=== PATIENT | male | born 1970 | race Hispanic/Latino ===

== ENCOUNTER 2024-11-24 18:10 | Emergency (ER) | payer SELFPAY ==
--- OUTSIDE RECORDS SUMMARY | 2024-11-24 18:13 | XMS REPORT | Continuity of Care Document ---
Author Name Unknown Address [address] [facility] [address] [place] [address] Organization [facility] [place] Address [address] [facility] [address] [place] [address] Care Team Providers Care Central Lab Technician Name Role Phone Pcp, Pcp Primary Care Physician BETTY Cheng Attending Clinician Unavailab Bruce WONG, Aureliano Casillas Attending Clinician [phone] Betty Hall MD Attending Clinician [phone] Social History Social Habit Start Date Stop Date Quantity Comments Source Gender identity Reginald Garnett Sexual orientation M [facility] Sex 2024-11-13 10:53:56 2024-11-13 10:53:56 Male (finding) [facility] Smoking Status Start Date Stop Date Source Tobacco smoking consumption unknown [facility] Medications Ordered Medication Name Filled Medication Name Start Date Stop Date Current Medication? Ordering Clinician Indication Dosage Frequency Signature (SIG) Comments Components Source oxyCODONE (Roxicodone ) immediate release tablet 10 mg oxyCODONE (Roxicodone ) immediate release tablet 10 mg 11-13 19:35: 00 11-13 19:45 :00 No 10mg 10 mg, Oral, Once, On Sun11/13/24 at 1935, For 1 dose Rebekah Garnett ondansetron (Zofran) injection 4 mg ondansetron (Zofran) injection 4 mg 11-13 14:20: 00 11-13 14:32 :00 No 4mg 4 mg, Intravenou s, Once, On Sun11/13/24 at 1420, For 1 dose Rebekah Barkerann Tamir morphine PF injection 4 mg morphine PF injection 4 mg 11-13 14:20: 00 11-13 14:32 :00 No 4mg 4 mg, Intravenou s, Once, On Sun11/13/24 at 1420, For 1 dose Dennisjeremías Barkerann Tamir sodium chloride (NS) 0.9 % flush 10 mL sodium chloride (NS) 0.9 % flush 10 mL 11-13 14:15: 11 Yes 10mL [Order 1 Start] Name: Insert peripheral IV Signed Summary: Once, On Sun11/13/24 at 1416, For 1 occurrence [Order 1 End] [Order 2 Start] Name: Saline lock IV Signed Summary: Once, On Sun11/13/24 at 1416, For 1 occurrence [Order 2 End] [Order 3 Start] Name: sodium chloride (NS) 0.9 % flush 10 mL Signed Summary: 10 mL, Intravenou s, As needed, line care, Starting on Sun11/13/24 at 1415 [Order 3 End] Rebekah Noe [facility] Vital Signs Vital Name Observation Time Observation Value Comments S ource Systolic blood pressure 2024-11-14 05:08:00 160 mm[Hg] [facility] Diastolic blood pressure 2024-11-14 05:08:00 89 mm[Hg] [facility] Heart rate 2024-11-14 05:08:00 64 /min [facility] Respiratory rate 2024-11-14 05:08:00 21 /min [facility] Oxygen saturation in Arterial blood by Pulse oximetry 2024-11-14 05:08:00 94 /min [facility] Body temperature 2024-11-13 20:00:00 37 Lianne [facility] Body height 2024-11-13 13:44:00 170.2 cm Reginald kylah [facility] Body weight 2024-11-13 13:44:00 72 kg [facility] BMI 2024-11-13 13:44:00 24.86 kg/m2 [facility] Systolic blood pressure 2024-11-14 05:08:00 160 mm[Hg] [facility] Diastolic blood pressure 2024-11-14 05:08:00 89 mm[Hg] [facility] Heart rate 2024-11-14 05:08:00 64 /min [facility] Respiratory rate 2024-11-14 05:08:00 21 /min [facility] Oxygen saturation in Arterial blood by Pulse oximetry 2024-11-14 05:08:00 94 /min [facility] Body temperature 2024-11-13 20:00:00 37 Lianne [facility] Body height 2024-11-13 13:44:00 170.2 cm [facility] Body weight 2024-11-13 13:44:00 72 kg [facility] BMI 2024-11-13 13:44:00 24.86 kg/m2 [facility] Procedures Procedure Date / Time Performed Performing Clinician Source XR LUMBAR SPINE 2-3 VIEWS 2024-11-14 02:13:00 Akin Zamarripa [facility] XR THORACOLUMBAR JUNCTION 2 VIEWS 2024-11-14 02:11:00 Akin Mullins [facility] DRUG SCREEN URINE (8 DRUGS) 2024-11-13 20:20:00 [facility] 2024-11-13 15:29:29 [facility] HEAD 2024-11-13 15:29:29 Bethanie [facility] SPINE 2024-11-13 15:29:29 Surnathaly, [facility] vette [facility] BASIC METABOLIC PANEL 2024-11-13 14:32:00 [facility]rel l[facility] HE[facility]EL 2024-11-13 14:32:00 Surre [facility]AnibalBecky [facility] ETHANOL LEVEL 2024-11-13 14:32:00 Anibal Kovacsve tte [facility] TYPE AND SCREEN 2024-11-13 14:32:00 SurAnibal andersenve tte [facility] COMPLETE BLOOD COUNT W/DIFF AND PLATELET 2024-11-13 14:32:00 Anibal Kovacsvette [facility] PROTIME-INR 2024-11-13 14:32:00 SurAnibal andersenve tte Inez [facility] PTT 2024-11-13 14:32:00 Surnathaly, Era tte Inez [facility] CDC HIV 4TH GEN 2024-11-13 14:32:00 Sharmin Aurelianochilo nevarez [facility] COMPLETE BLOOD COUNT 2024-11-13 14:32:00 Surrell Becky Inez [facility] AUTOMATED DIFFERENTIAL 2024-11-13 14:32:00 Surre helga, Becky Inez [facility] ECG 12 lead [facility] Plan of Care Planned Activity Planned Date Details Comments Source Encounters Start Date/Time End Date/Time Encounter Type Admission Type Attending Clinicians Care Facility Care Department Encounter ID Source 2024-11-13 13:49:00 2024-11-14 06:10:00 Emergency Emergency BETTY HALL [facility] General Medicine [id number] [facility] 2024-11-13 13:49:00 2024-11-14 06:10:00 Emergency Aureliano Finney Katrin Y [facility] [id number] Rebekah felix [facility] 2024-11-13 15:59:39 2024-11-13 23:59:[address] [facility] [id number] [facility] 2024-11-13 15:59:39 2024-11-13 23:59:[address] [facility] [id number] [facility] 2024-11-13 15:59:38 2024-11-13 23:59:[address] [facility] [id number] [facility] 2024-11-13 15:29:29 2024-11-13 23:59:[address] [facility] [id number] [facility] 2024-11-13 15:29:29 2024-11-13 23:59:[address] [facility] [id number] [facility] 2024-11-13 15:29:29 2024-11-13 23:59:[address] [facility] [id number] [facility] Results Test Description Test Time Test Comments Results Result Comments Source XR thoracolumbar junction 2 views 2024-11-03 2 03:03:16 EXAM: XR LUMBAR SPINE 2-3 VIEWSEXAM: XR THORACOLUMBAR SPINE 2 VIEWS DATE: 11/14/2024 2:04 INDICATION: standing uprights with brace to evalauate fracture ? COMPARISON: CT chest, abdomen and pelvis with contrast performed on 11/13/2024TECHNIQUE: AP and lateral radiographs of the lumbar spine. AP and lateralradiographs of the thoracolumbar junction. FINDINGS:In an upright position with a brace applied: 5 lumbar type, non-rib bearing vertebral bodies are present. Alignment of the thoracolumbar spine and lumbar elements is maintained. Vertebral body heights are preserved. An acute wedge compression fracture at the anterior superior corner of I2awhsacvup body is unchanged.An acute Chance fracture is present at T12. A minimally displaced transversefracture line is seen through the posterior third of the T12 vertebral bodyextending through the posterior elements of T12, unchanged.Degenerative disc space narrowing is present at L5-S1. Facet arthropathy ispresent at L4-S1. The remaining disc heights are preserved. ?No soft tissue abnormality is identified. IMPRESSION: ? 1. Alignment of thoracolumbar spine and lumbar elements is maintained in theupright position with a brace applied. 2. Acute wedge compression fracture at the anterior inferior corner of L2 isunchanged. 3. Acute Chance fracture is present at T12 with minimally displaced acutetransverse fracture extending from the posterior third of the vertebral bodythrough the posterior elements of T12. 4. Degenerative disc disease is present at L5-S1 with anterior marginalosteophyte formation at L3-S1 accompanied by facet arthropathy greatest atL4-S1. This report was dictated by a Chronometer Adjuster/Fellow/JACINTA: RESDr. Calvin MD 11/14/2024 2:27 This report was dictated by a Chronometer Adjuster/Fellow/Physic parker Dietary Director. Ihave personally reviewed the images as well as the interpretation and agree withthe findings. Report finalized by: Rosette Contreras MD 11/14/2024 3:03Rosette Contreras MD - 11/14/2024 EXAM: XR LUMBAR SPINE 2-3 VIEWSEXAM: XR THORACOLUMBAR SPINE 2 VIEWSDATE: 11/14/2024 2:04INDICATION: standing uprights with brace to evalauate fracture COMPARISON: CT chest, abdomen and pelvis with contrast performed on 11/13/2024TECHNIQUE: AP and lateral radiographs of the lumbar spine. AP and lateralradiographs of the thoracolumbar junction.FINDINGS:In an upright position with a brace applied:5 lumbar type, non-rib bearing vertebral bodies are present. Alignment of the thoracolumbar spine and lumbar elements is maintained.Vertebral body heights are preserved. An acute wedge compression fracture at the anterior superior corner of Q3gcjooscfv body is unchanged.An acute Chance fracture is present at T12. A minimally displaced transversefracture line is seen through the posterior third of the T12 vertebral bodyextending through the posterior elements of T12, unchanged.Degenerative disc space narrowing is present at L5-S1. Facet arthropathy ispresent at L4-S1. The remaining disc heights are preserved. No soft tissue abnormality is identified.IMPRESSION: 1. Alignment of thoracolumbar spine and lumbar elements is maintained in theupright position with a brace applied.2. Acute wedge compression fracture at the anterior inferior corner of L2 isunchanged.3. Acute Chance fracture is present at T12 with minimally displaced acutetransverse fracture extending from the posterior third of the vertebral bodythrough the posterior elements of T12.4. Degenerative disc disease is present at L5-S1 with anterior marginalosteophyte formation at L3-S1 accompanied by facet arthropathy greatest atL4-S1.This report was dictated by a Chronometer Adjuster/Fellow/JACINTA: RESDr. Calvin MD 11/14/2024 2:27This report was dictated by a Chronometer Adjuster/Fellow/Physic parker Dietary Director. Ihave personally reviewed the images as well as the interpretation and agree withthe findings.Report finalized by: Rosette Contreras MD 11/14/2024 3:03 [facility] XR lumbar spine 2-3 views 2024-11-03 2 03:03:16 EXAM: XR LUMBAR SPINE 2-3 VIEWSEXAM: XR THORACOLUMBAR SPINE 2 VIEWS DATE: 11/14/2024 2:04 INDICATION: standing uprights with brace to evalauate fracture ? COMPARISON: CT chest, abdomen and pelvis with contrast performed on 11/13/2024TECHNIQUE: AP and lateral radiographs of the lumbar spine. AP and lateralradiographs of the thoracolumbar junction. FINDINGS:In an upright position with a brace applied: 5 lumbar type, non-rib bearing vertebral bodies are present. Alignment of the thoracolumbar spine and lumbar elements is maintained. Vertebral body heights are preserved. An acute wedge compression fracture at the anterior superior corner of K8igtylyaxh body is unchanged.An acute Chance fracture is present at T12. A minimally displaced transversefracture line is seen through the posterior third of the T12 vertebral bodyextending through the posterior elements of T12, unchanged.Degenerative disc space narrowing is present at L5-S1. Facet arthropathy ispresent at L4-S1. The remaining disc heights are preserved. ?No soft tissue abnormality is identified. IMPRESSION: ? 1. Alignment of thoracolumbar spine and lumbar elements is maintained in theupright position with a brace applied. 2. Acute wedge compression fracture at the anterior inferior corner of L2 isunchanged. 3. Acute Chance fracture is present at T12 with minimally displaced acutetransverse fracture extending from the posterior third of the vertebral bodythrough the posterior elements of T12. 4. Degenerative disc disease is present at L5-S1 with anterior marginalosteophyte formation at L3-S1 accompanied by facet arthropathy greatest atL4-S1. This report was dictated by a Chronometer Adjuster/Fellow/JACINTA: RESDr. Calvin MD 11/14/2024 2:27 This report was dictated by a Chronometer Adjuster/Fellow/Physic parker Dietary Director. Ihave personally reviewed the images as well as the interpretation and agree withthe findings. Report finalized by: Rosette Contreras MD 11/14/2024 3:03Rosette Contreras MD - 11/14/2024 EXAM: XR LUMBAR SPINE 2-3 VIEWSEXAM: XR THORACOLUMBAR SPINE 2 VIEWSDATE: 11/14/2024 2:04INDICATION: standing uprights with brace to evalauate fracture COMPARISON: CT chest, abdomen and pelvis with contrast performed on 11/13/2024TECHNIQUE: AP and lateral radiographs of the lumbar spine. AP and lateralradiographs of the thoracolumbar junction.FINDINGS:In an upright position with a brace applied:5 lumbar type, non-rib bearing vertebral bodies are present. Alignment of the thoracolumbar spine and lumbar elements is maintained.Vertebral body heights are preserved. An acute wedge compression fracture at the anterior superior corner of Q8ftnrxjkxu body is unchanged.An acute Chance fracture is present at T12. A minimally displaced transversefracture line is seen through the posterior third of the T12 vertebral bodyextending through the posterior elements of T12, unchanged.Degenerative disc space narrowing is present at L5-S1. Facet arthropathy ispresent at L4-S1. The remaining disc heights are preserved. No soft tissue abnormality is identified.IMPRESSION: 1. Alignment of thoracolumbar spine and lumbar elements is maintained in theupright position with a brace applied.2. Acute wedge compression fracture at the anterior inferior corner of L2 isunchanged.3. Acute Chance fracture is present at T12 with minimally displaced acutetransverse fracture extending from the posterior third of the vertebral bodythrough the posterior elements of T12.4. Degenerative disc disease is present at L5-S1 with anterior marginalosteophyte formation at L3-S1 accompanied by facet arthropathy greatest atL4-S1.This report was dictated by a Chronometer Adjuster/Fellow/JACINTA: RESDr. Calvin MD 11/14/2024 2:27This report was dictated by a Chronometer Adjuster/Fellow/Physic parker Dietary Director. Ihave personally reviewed the images as well as the interpretation and agree withthe findings.Report finalized by: Rosette Contreras MD 11/14/2024 3:03 [facility] Consult Notes Date/Time Note Provider Source 2024-11-13 17:05:55 ORS Spine Fellow Attestation I independently evaluated this patient and agree with the findings and the plan as detailed above. Edits have been made where appropriate. Briefly, this is a 54 y.o. male who is status post fall from reported height of 19 feet sustaining a T12 fracture and L2 fracture. CT shows T12 flexion distraction injury with tension failure through anterior, middle and posterior columns with a L2 superior endplate avulsion fracture. Anticipate non-operative management Given patient's neuro intact status, will plan for upright XR in brace. No current plan for MRI. Keep NPO pending upright XR Akin Mullins MD Ortho Spine Fellow Pager: [phone]; secure chat preferred Ortho Spine Consult Note Reason for Consult: T12 chance fx, L2 superior endplate avulsion fx Source of Consult: ED Consulting Attending: Orthopedic Spine Attending: Dr. Olvera Date of Service: 11/13/2024 Time of Consult: 5:06 PM Time of Evaluation: 5:16 PM ORS Consult History and Physical Chief Complaint: Chief Complaint Patient presents with Fall spine fracture History of Present Illness: Debra Burks is a 54 y.o. male status post fall from height with thoracolumbar pain. Was able to walk after the fall. Patient is complaining of thoracolumbar pain. Patient denies any other extremity pain, numbness, tingling, or weakness. Patient denies bowel or bladder incontinence. Patient denies saddle paresthesia. Patient denies difficulty with fine motor skills such as buttoning buttons or handwriting. Patient denies difficulty with balance. Patient denies taking anticoagulation medications. Patient denies taking immunosuppressive medications. Is this a Fragility Fracture? No Osteoporosis meds/history: N/A Oncologic chemo meds/radiation history: N/A There is no problem list on file for this patient. No past medical history on file. No past surgical history on file. Current Facility-Administered Medications: [COMPLETED] Insert peripheral IV, , , Once AND [COMPLETED] Saline lock IV, , , Once AND sodium chloride (NS) 0.9 % flush 10 mL, 10 mL, Intravenous, PRN, Becky Inez Kovacs NP No current outpatient medications on file. No Known Allergies Social History Tobacco Use Smoking Status Not on file Smokeless Tobacco Not on file Social History Substance and Sexual Activity Alcohol Use Not on file Social History Substance and Sexual Activity Drug Use Not on file Occupation: Construction No family history on file. Review of Systems BP 133/78 | Pulse 67 | Temp 36.6 ?C (97.8 ?F) (Oral) | Resp (!) 23 | Ht 1.702 m (5' 7") | Wt 72 kg (158 lb 11.7 oz) | SpO2 96% | BMI 24.86 kg/m? Physical Exam: Gen: A&Ox4 , NAD, GCS 15 Resp: Unlabored with equal chest rise and fall on room air Spine: Generalized posterior spine tenderness to thoracolumbar, no gaps or step offs, no ecchymosis Rectal tone: Volitional contracture intact, perianal sensation intact, deep anal pressure intact Bulbocavernosus reflex: present Ricardo's: absent | Babinski: absent | Clonus: present Reflexes: Sensory Exam: Sensation present to light touch throughout = 2, decreased sensation to light touch = 1, sensation absent = 0 C5 C6 C7 C8 T1 L2 L3 L4 L5 S1 S2 S3 S4 R 2 2 2 2 2 2 2 2 2 2 2 2 2 L 2 2 2 2 2 2 2 2 2 2 2 2 2 Motor Exam: ShlAbd ElbFlex WristExt ElbExt FingFlex MELISSA HipFlex KneeExt AnkDF EHL Gastroc R 5/5 5/5 5/5 5/5 5/5 5/5 5/5 5/5 5/5 5/5 5/5 L 5/5 5/5 5/5 5/5 5/5 5/5 5/5 5/5 5/5 5/5 5/5 Imaging: CT spine shows T12 chance fx, L2 superior endplate avulsion fx Labs: Lab Results Component Value Date WBC 13.17 (H) 11/13/2024 Hgb 14.5 11/13/2024 Plt Count 192 11/13/2024 Creatinine Lvl 0.97 11/13/2024 WANDA Classification: E Assessment: Debra Burks is a 54 y.o. male status post fall from height with T12 chance fx, L2 superior endplate avulsion fx. Plan: - Pending imaging studies: MRI - Bracing: Off the shelf TLSO - Spine precautions: lumbar - Pain - multimodal pain regimen per primary - DVT prophylaxis: per protocol - Diet: per primary - Consult: PT/OT - Disposition: Pending MRI, ORS spine team evaluation and imaging review Sunday-Sunday between 6am and 4pm please call spine JACINTA at [facility] ([phone]) for questions, otherwise please page the ORS Spine resident through Amion or the page bearing press machine operator after hours. Spine Surgery Emergencies - Please call [phone] ([phone]) Naun Caballero MD Orthopedic Surgery Physician Doron Noe Notes Date/Time Note Provider Source 2024-11-14 06:10:09 Doron Noe * [place] Suicide Severity Rating Scale (Screener/Recent Self-Report) Question Answer Date of Assessment Author 1. Wish to be (Past 1 Month) No 025 1:49 PM CDT Angela Rivera, TIMMY 2. Non-Specific Active Suici adela Thoughts (Past 1 Month) No 11/13/2024 1:49 PM CDT Chavez Rivera RN 6. Suicidal Behavior (Lifetime) No 1:49 PM CDT Angela Rivera RN [facility]2025-09-12 06:10:09Pending Results Health Maintenance Due Date Last Done Comments CT Colonography 1970 Colonoscopy 1970 Colorectal Cancer Screening 1970 FIT-DNA 1970 FIT 1970 FOBT 1970 Lipid Panel 1970 Sigmoidoscopy 1970 Annual Physical 1973 DTaP/Tdap/Td Vaccines (1 - Tdap) 1989 Hepatitis B Vaccines (1 of 3 - 19+ 3-dose series) 1989 Pneumococcal Vaccine: 50+ Ye ars (1 of 1 - PCV) 2020 Zoster Vaccines (1 of 2) 2020 Influenza Vaccine (#1) 2024 Respiratory Syncytial Virus (RSV) Adult Series (1 - 1-dose 75+ series) 2045 HIB Vaccines Aged Out No longer eligi ble based on patient's age to complete this topic HPV Vaccines Aged Out No longer eligi ble based on patient's age to complete this topic Hepatitis A Vaccines Aged Out No long er eligible based on patient's age to complete this topic IPV Vaccines Aged Out No longer eligi ble based on patient's age to complete this topic Meningococcal Vaccine Aged Out No migel barb eligible based on patient's age to complete this topic Pneumococcal Vaccine: Pediat rics (0 to 5 Years) and At-Risk Patients (6 to 64 Years) Aged Out No longer eligible b ased on patient's age to complete this topic Rotavirus Vaccines Aged Out No longer eligible based on patient's age to complete this topic Doron [id number] 06:10:09 Diagnosis Fall from roof, initial enco unter - Primary Closed fracture of twelfth t horacic vertebra, unspecified fracture morphology, initial encounter ([facility]) Closed wedge compression fra cture of L2 vertebra, initial encounter ([facility]) Doron [id number] 06:10:09 Doron Noe
--- NOTE | 2024-11-24 18:22 | EDPHYS ---
Physician Documentation [facility] Name: Rosalino Burks Age: 54 yrs Sex: Male : 1970 Arrival Date: 11/24/2024 Time: 18:10 Bed IW1 Private MD: ED Physician Alec Dickson HPI: 11/24 19:16 This 54 yrs old Male presents to ER via Ambulatory with complaints of Suture dr5 Removal. 19:16 The patient has renee on the right side of the back of head. Sutures/renee dr5 progress: The patient has no c/o's. The wound is well-healing with no redness, swelling, discharge, or dehiscence reported. Patient had renee placed in laceration on head 11 days ago. Patient denies symptoms. Patient is here for removal of renee. Historical: - Allergies: 18:17 No Known Allergies; dd2 - PMHx: 18:17 None; dd2 - PSHx: 18:17 None; dd2 - Immunization history:: Adult Immunizations up to date. - Infectious Disease History:: Denies. - Social history:: Smoking status: Patient denies any tobacco usage or history of. ROS: 19:16 Constitutional: as per hpi dr5 Exam: 19:16 Constitutional: This is a well developed, well nourished patient who is awake, alert, dr5 and in no acute distress. Head/Face: Normocephalic, atraumatic. Eyes: Pupils equal round and reactive to light, extra-ocular motions intact. Lids and lashes normal. Conjunctiva and sclera are non-icteric and not injected. Cornea within normal limits. Periorbital areas with no swelling, redness, or edema. Neck: Trachea midline, no thyromegaly or masses palpated, and no cervical lymphadenopathy. Supple, full range of motion without nuchal rigidity, or vertebral point tenderness. No Meningismus. Chest/axilla: Normal chest wall appearance and motion. Nontender with no deformity. No lesions are appreciated. Cardiovascular: Regular rate and rhythm with a normal S1 and S2. Normal PMI, no JVD. No pulse deficits. Respiratory: Lungs have equal breath sounds bilaterally, clear to auscultation. No rales, rhonchi or wheezes noted. No increased work of breathing, no retractions or nasal flaring. Back: No spinal tenderness. No costovertebral tenderness. Full range of motion. MS/ Extremity: Pulses equal, no cyanosis. Neurovascular intact. Full, normal range of motion. Neuro: Awake and alert, GCS 15, oriented to person, place, time, and situation. Cranial nerves II-XII grossly intact. Motor strength 5/5 in all extremities. Sensory grossly intact. Cerebellar exam normal. Normal gait. 19:16 Skin: Wound recheck: Staple laceration closure: the wound is healing well, the edges are well approximated, Vital Signs: 18:20 BP 142 / 78; Pulse 82; Resp 16; Temp 98.1; Pulse Ox 99% ; Pain 0/10; dd2 18:26 BP 137 / 76; Pulse 78; Resp 16; Pulse Ox 100% on R/A; dd2 18:20 Pain Scale: Adult dd2 Procedures: 19:16 Suture/Staple removal: Removed 8 renee, from right side of the back of head, site dr5 appears well healed, Patient tolerated well. MDM: 18:15 Medical Screening Exam initiated dr5 19:16 Data reviewed: vital signs, nurses notes. I considered the following discharge dr5 prescriptions or medication management in the emergency department I discussed and recommended Over The Counter medications, Medications were administered in the Emergency Department. See MAR. 19:16 Care significantly affected by the following Social Determinants of Health: Poor access dr5 to healthcare and/or lack of insurance, Poor access to transportation, Problems related to employment. Counseling: I had a detailed discussion with the patient and/or guardian regarding the historical points, exam findings, and any diagnostic results supporting the discharge/admit diagnosis, the presence of at least one elevated blood pressure reading (>120/80) during this emergency department visit, the need for outpatient follow up, for definitive care, a family practitioner. Special discussion: I discussed with the patient/guardian in detail that at this point there is no indication for admission to the hospital. It is understood, however, that if the symptoms persist or worsen the patient needs to return immediately for re-evaluation. ED course: 8 renee removed without complications. All 8 renee were counted. Recommend patient follow-up with primary care doctor as needed. All questions answered. Strict ER precautions.. Administered Medications: No medications were administered Disposition Summary: 11/24/24 18:22 Discharge Ordered Notes: Location: Home dr5 Condition: Stable dr5 Diagnosis - Encounter for removal of sutures - renee dr5 Followup: dr5 - With: Emergency Department - When: As needed - Reason: Worsening of condition Followup: dr5 - With: Private Physician - When: 1 - 2 days - Reason: Recheck today's complaints, Continuance of care, Re-evaluation by your physician Discharge Instructions: - Discharge Summary Sheet dr5 - Suture Removal, Care After dr5 Forms: - Medication Reconciliation Form dr5 - Patient Portal Instructions dr5 - Leadership Thank You Letter dr5 Addendum: 11/27/2024 07:02 Co-signature as Attending Physician, Alec Dickson MD I reviewed the patient's care r n provided by the Advanced Practice Provider and agree with the diagnosis and treatment plan. Signatures: Alec Dickson MD MD rn CARMEN, TIMMY COELLO RN dd2 Earnest Hayden, EDUCATION LIAISON-C EDUCATION LIAISON-Cdr5 Corrections: (The following items were deleted from the chart) 11/24 19:18 19:16 Suture/Staple removal: Removed 8 renee, from right side of the back of head, dr5 site appears well healed, dressed with Patient tolerated well, dr5
--- NOTE | 2024-11-24 18:22 | ER ---
Nurse's Notes [facility] Name: Rosalino Burks Age: 54 yrs Sex: Male : 1970 Arrival Date: 11/24/2024 Time: 18:10 Bed IW1 Private MD: Diagnosis: Encounter for removal of sutures-renee Presentation: 11/24 18:15 Chief complaint: Patient states: HERE FOR RENEE TO BE REMOVED FROM HEAD, PLACE ON dd2 11/13. Coronavirus screen: At this time, the client does not indicate any symptoms associated with coronavirus-19. Ebola Screen: No symptoms or risks identified at this time. Risk Assessment: Do you want to hurt yourself or someone else? Patient reports no desire to harm self or others. Onset of symptoms was November 13, 2024. 18:15 Method Of Arrival: Ambulatory dd2 18:15 Acuity: RONNI 4 dd2 18:27 Initial Sepsis Screen: Does the patient meet any 2 criteria? No. Patient's initial dd2 sepsis screen is negative. Does the patient have a suspected source of infection? No. Patient's initial sepsis screen is negative. Triage Assessment: 18:17 General: Appears in no apparent distress. Behavior is calm, cooperative, appropriate dd2 for age. Pain: Denies pain. EENT: No deficits noted. No signs and/or symptoms were reported regarding the EENT system. Neuro: No deficits noted. Cardiovascular: No deficits noted. Respiratory: No deficits noted. GI: No deficits noted. No signs and/or symptoms were reported involving the gastrointestinal system. : No deficits noted. No signs and/or symptoms were reported regarding the genitourinary system. Derm: RENEE TO BACK OF SCALP 8. Musculoskeletal: No deficits noted. No signs and/or symptoms reported regarding the musculoskeletal system. Historical: - Allergies: 18:17 No Known Allergies; dd2 - PMHx: 18:17 None; dd2 - PSHx: 18:17 None; dd2 - Immunization history:: Adult Immunizations up to date. - Infectious Disease History:: Denies. - Social history:: Smoking status: Patient denies any tobacco usage or history of. Screenin:18 [facility] ED Fall Risk Assessment (Adult) History of falling in the last 3 months, dd2 including since admission Yes- single mechanical fall (1 pt) Confusion or Disorientation No (0 pts) Intoxicated or Sedated No (0 pts) Impaired Gait No (0 pts) Mobility Assist Device Used No (0 pt) Altered Elimination No (0 pt) Score/Fall Risk Level 0 - 2 = Low Risk. Abuse screen: Denies threats or abuse. Denies injuries from another. Nutritional screening: No deficits noted. Tuberculosis screening: No symptoms or risk factors identified. Assessment: 18:18 Reassessment: SEE TRIAGE ASSESSMENT. dd2 Vital Signs: 18:20 BP 142 / 78; Pulse 82; Resp 16; Temp 98.1; Pulse Ox 99% ; Pain 0/10; dd2 18:26 BP 137 / 76; Pulse 78; Resp 16; Pulse Ox 100% on R/A; dd2 18:20 Pain Scale: Adult dd2 ED Course: 18:14 Patient arrived in ED. im 18:15 Earnest Hayden FNP-C is [facility]. dr5 18:15 Alec Dickson MD is Attending Physician. dr5 18:17 Triage completed. dd2 18:17 Arm band placed on right wrist. dd2 18:18 Patient has correct armband on for positive identification. Provided Education on: D/C dd2 EDUCATION, SKIN CARE. 18:18 No provider procedures requiring assistance completed. Patient did not have IV access dd2 during this emergency room visit. Removal of Removed renee from right side of the back of head. Administered Medications: No medications were administered Medication: 18:18 VIS not applicable for this client. dd2 Outcome: 18:22 Discharge ordered by . dr5 18:26 Discharged to home ambulatory, dd2 18:26 Condition: stable 18:26 Discharge instructions given to patient, Instructed on discharge instructions, follow up and referral plans. Demonstrated understanding of instructions, follow-up care, 18:27 Patient left the ED. dd2 Signatures: Debbie Kirk MODE MORALES RN RN dd2 Earnest Hayden FNP-C [employer] ELIGIBILITY SPECIALIST-Cdr5
[2024-11-24 20:04] VITALS: TEMP 98.1
[2024-11-24 20:18] VITALS: BP 137/76; O2SAT 100
== END 2024-11-24 18:27 | disposition home or self-care (01) ==
LOC: ER 18:10
DX: Z48.02 Encounter for removal of sutures (principal)
CPT/HCPCS: 99283